=== PATIENT | female | born 1950 | race Caucasian/White ===

== ENCOUNTER 2018-11-29 15:26 | Outpatient (CLI) | payer MEDICARE, OTHER ==
--- NOTE | 2018-11-29 15:53 | Diagnostic Imaging Report ---
ROBERTO BABCOCK [facility] [id number] [facility].[address] [address] Report Submission Date: November 29, 2018 3:50:43 PM CDT Patient Study Name: CHANTAL WELLS Date: November 29, 2018 3:30:34 PM CDT Modality Type: DX Gender: F Description: TOES 2 VIEWS OR MORE : 50 Institution: [facility] Physician: ROBERTO BABCOCK Examination: Plain film right toes History: HIT TOE ON DESK JUST TODAY Findings: 3 views of the right toes demonstrates normal cortical margins. No fracture or dislocation. No soft tissue swelling. No joint effusion. Impression: No acute osseous process. Electronically signed on November 29, 2018 3:50:43 PM CDT by: Carter PHAN
== END 2018-11-29 15:28 ==
LOC: RAD 15:26
PROVIDERS: ATTEND Family Medicine
DX: M79.671 Pain in right foot (principal)
CPT/HCPCS: 73660